=== PATIENT | female | born 2000 | race Two or more races ===

== ENCOUNTER 2020-03-02 15:02 | Emergency (ER) | payer OTHER ==
[2020-03-02 15:10] VITALS: BP 125/62
--- NOTE | 2020-03-02 15:44 | ER Document Report ---
ED Oral Problem - General Chief Complaint: Mouth Problem Stated Complaint: DENTAL PROBLEM Time Seen by Provider: 03/02/20 15:28 Mode of Arrival: Ambulatory Information source: Patient - HPI Patient complains to provider of: Jaw pain Notes: Patient here with complaints of dental pain. She states most of her pain is in her right jaw area states that occasionally the pain is all over her teeth. States that she has a wisdom tooth, and is not sure if this is pushing on her other teeth. She denies any fever. No swelling. No difficulty breathing or sw allowing. No abdominal pain. No nausea, vomiting, diarrhea. No chest pain or shortness of breath. No rash. Pain is intermittent, mild to moderate, nothing seems to make it better. Patient states that she was recently positive for Covid although she has had no symptoms for 6 days. She reports getting a repeat Covid test today but does not know the results. - Related Data Allergies/Adverse Reactions: No Known Allergies Allergy (Verified 03/02/20 15:28) Past Medical History - Social History Smoking Status: Never Smoker Chew tobacco use (# tins/day): No Frequency of alcohol use: None Drug Abuse: None Family History: Reviewed & Not Pertinent Patient has homicidal ideation: No Review of Systems - Review of Systems -: Yes All other systems reviewed and negative Physical Exam - Vital signs Vitals: Temp Pulse Resp BP Pulse Ox 98.6 F 73 16 125/62 99 03/02/20 15:08 03/02/20 15:08 03/02/20 15:08 03/02/20 15:08 03/02/20 15:08 - Notes Notes: GENERAL: alert, cooperative, nontoxic, no distress. HEAD: normocephalic, atraumatic EYES: conjunctiva pink without discharge, no external redness or swelling. EARS: no external swelling, no external redness, no mastoid redness, swelling, tenderness. Ear canals are clear without swelling or drainage. TMs pearly contreras, no redness, no bulging, normal landmarks, no perforation. NOSE: atraumatic, no external swelling. clear rhinorrhea noted. MOUTH/THROAT: mucous membranes moist and pink, posterior pharynx without erythema, swelling, exudate. No trismus or drooling. Voice is normal, no stridor. Right lower wisdom tooth is noted to be erupting. There are some mild tenderness around this area. There is no drainable abscess. There is no jaw swelling. No sublingual swelling or induration. NECK: soft, supple, full range of motion, no meningismus. CHEST: no distress, lungs clear and equal throughout. No wheezing, rales, rhonchi. CARDIAC: regular rate and rhythm, no murmur EXTREMITIES: full range of motion of all extremities. No redness, no swelling. NEURO: alert and oriented A&O3, no focal deficits, full range of motion of all extremities. PYSCH: appropriate mood, affect. Patient is cooperative. SKIN: pink, warm, dry, no rash. Course - Re-evaluation Re-evalutation: 03/02/20 15:40 Patient nontoxic-appearing stable vitals. Here with complaints of right lower dental pain. This been going on for the last few days. On exam patient has very good dental hygiene with no obvious cavities. Her right lower wisdom tooth is erupting this is where most of her pain is. I do not appreciate any drainable abscess. There is no facial redness, swelling or signs of abscess. There is no sublingual swelling or induration. No sign of Joe's Angina. Patient will be given Pen-Vee K for possible early dental infection as well as some NSAIDs. Most importantly she will be given referrals to [facility]. She is instructed to follow-up with a dentist at the next available appointment for evaluation. Follow-up sooner for worsening pain, high fever, persistent vomiting, or for any further concerns. The patient's emergency department workup and current diagnosis were explained to the patient and or family. Follow-up instructions were provided. Medications if prescribed were discussed. Instructions for when to return to the emergency department including specific worrisome symptoms were discussed with the patient and/or family. - Vital Signs Vital signs: Temp Pulse Resp BP Pulse Ox 98.6 F 73 16 125/62 99 03/02/20 15:08 03/02/20 15:08 03/02/20 15:08 03/02/20 15:08 03/02/20 15:08 - Laboratory Results Critical Laboratory Results Reviewed: No Critical Results - Radiology Results Critical Radiology Results Reviewed: No Critical Results Discharge - Discharge Clinical Impression: Pain, dental Condition: Stable Disposition: HOME, SELF-CARE Instructions: [facility], Toothache ([facility]), Dentist Additional Instructions: Take medication as prescribed. Follow-up with a dentist as soon as possible. Follow-up sooner for worsening pain, fever, swelling, difficulty breathing or swallowing, or any further concerns. Prescriptions: Penicillin V Potassium [Penicillin Vk 500 mg Tablet] 500 mg PO BID #20 tablet Diclofenac Sodium [Voltaren 50 Mg Tablet.] 50 mg PO BID #20 tablet. Referrals: [facility] [Provider Group] - Follow up as needed [facility] [Provider Group] - Follow up as needed
--- OUTSIDE RECORDS SUMMARY | 2020-03-02 15:55 | XMS REPORT ---
:2000 Author Organization [facility] Address [address] [address] Care Team Providers Name Role Phone Unavailable Unavailable Unavailable Allergies, Adverse Reactions, Alerts This patient has no known allergies or adverse reactions. Medications This patient has no known medications. Problems This patient has no known problems. Procedures This patient has no known procedures. Results Test Description Test Time Test Comments Text Results Atomic Results Result Comments SARS-CoV-2 RNA Resp Ql ISAIAH+probe 2020-02-26 00:00:00 Test Item Value Reference Range Comments SARS-CoV-2 RNA Resp Ql ISAIAH+probe Detected [place] Cov[facility] Case ID: (test code = [id number]) [id number] Social History This patient has no known social history. Vital Signs This patient has no known vital signs.
== END 2020-03-02 15:42 | disposition home or self-care (01) ==
LOC: ER 15:02
DX: K00.6 Disturbances in tooth eruption (principal); K08.89 Other specified disorders of teeth and supporting structures
CPT/HCPCS: 99283